=== PATIENT | male | born 1935 | race African-American/Black ===

== ENCOUNTER 2018-05-28 09:21 | Inpatient (IN) ==
[2018-05-28] MEDS ORDERED: SODIUM CHLORIDE 0.9% 1,000 ML IV STA (09:39)
[2018-05-28 09:56] LABS: Basophils % 0.3 % (0.0-0.8); Hematocrit 49.3 VOL% (42.0-52.0); Hemoglobin 16.2 GM/DL (14.0-18.0); Immature Granulocytes % 0.6 %; Immature Granulocytes Absolute 0.04 #; Lymphocytes # 0.6 10*3/uL (1.4-4.0); Lymphocytes % 8.1 % (21.2-54.2); Mean Corpuscular HGB Conc 32.9 GM/DL (32-36); Mean Corpuscular Hemoglobin 29 PG (27-34); Mean Corpuscular Volume 86.9 FL (87-102); Mean Platelet Volume 10.2 FL (9.6-12.0); Monocytes # 0.1 10*3/uL (0.11-0.8); Monocytes % 1.6 % (1.7-12.7); Neutrophils # 6.1 10*3/uL (1.4-7.4); Neutrophils % 89.4 % (38.7-73.9); Platelet Count 100 T/CUMM (130-400); Red Blood Count 5.67 MC/CUMM (3.8-5.5); Red Cell Distribution Width 14.6 % (9.3-17.3); White Blood Count 6.8 T/CUMM (4-12)
[2018-05-28 10:04] LABS: INR 1.1; PT Patient Result 11.4 SECS; Partial Thromboplastin Time 32.9 SECS (0-40)
[2018-05-28 10:14] LABS: Ammonia < 10 UMOL/L (11-32)
[2018-05-28 10:18] LABS: Platelet Estimate Decreased; Polychromasia Few
[2018-05-28 10:19] LABS: Ovalocytes 1+
[2018-05-28 10:21] LABS: Amorphous Crystals,Urine Occasional /HPF (Few); Apearance,Urine CLOUDY (Clear); Bacteria,Urine Occasional /HPF (Few); Bilirubin,Urine Negative (Negative); Blood, Urine Moderate mg/dL (Negative); Glucose,Urine (UA) Negative (Negative); Ketones,Urine 5 mg/dL (Negative); Mucus,Urine Occasional /LPF (Occasional); Nitrite,Urine Negative (Negative); Protein,Urine 100 MG/DL; RBC,Urine 3 /HPF (0-4); Squamous Epithelial Cell,Urine Occasional /HPF (0-10); Urine Color Yellow (Yellow); Urine Specific Gravity 1.018 (1.001-1.035); Urine Urobilinogen < 2.0 EU/DL (0.2-1.0); WBC,Urine 1 /HPF (0-6)
[2018-05-28 10:26] LABS: Alanine Aminotransferase 24 U/L (16-61); Albumin 2.5 G/DL (3.4-5.0); Alkaline Phosphatase 77 U/L (45-117); Aspartate Amino Transferase 79 U/L (0-37); Blood Urea Nitrogen 20 MG/DL (7-18); Calcium 8.8 MG/DL (8.5-10.1); Glucose 121 MG/DL (74-106); Potassium 4.6 MMOL/L (3.5-5.1); Sodium 136 MMOL/L (136-145); Thyroid Stimulating Hormone 0.293 uIU/ml (0.358-3.74); Total Protein 7.3 G/DL (6.4-8.3)
[2018-05-28 10:27] LABS: Lactic Acid 2.1 MMOL/L (0.4-2.0)
[2018-05-28 10:52] LABS: Barbiturates Screen,Urine Negative (Negative); Benzodiazepines Screen,Urine Negative (Negative); Cannabinoid Screen,Urine Negative (Negative); Opiate Screen,Urine Negative (Negative); Phencyclidine Screen,Urine Negative (Negative)
[2018-05-28] MEDS ORDERED: GLUCAGON 1 MG VIAL IM PRN (12:01)
[2018-05-28] MEDS ORDERED: LACTULOSE 20 GM/30 ML UDCUP PO PRN (12:01)
[2018-05-28] MEDS ORDERED: PROMETHAZINE 25 MG TABLET PO PRN (12:01)
[2018-05-28] MEDS ORDERED: DEXTROSE 50% 25 GM/50 ML VIAL IV PRN (12:01)
[2018-05-28] MEDS ORDERED: ONDANSETRON 4 MG/2 ML VIAL IV PRN (12:01)
[2018-05-28] MEDS ORDERED: TUBERCULIN SKIN TEST 0.1 ML SYRINGE INTRADERM ONE (12:18)
[2018-05-28] MEDS ORDERED: SODIUM CHLORIDE 0.9% 2,000 ML IV ONE (14:12)
[2018-05-28] MEDS: SODIUM CHLORIDE 0.9% 1,000 ML IV SCH ×2 (15:06→20:30)
[2018-05-28] MEDS: ACETAMINOPHEN 325 MG TABLET PO PRN (15:06)
[2018-05-28] MEDS: cefTRIAXone 1,000 MG in SYRINGE 1 EACH IV SCH (16:58)
[2018-05-28] MEDS: INSULIN LISPRO 100 UNIT/ML SUBCUT SCH ×2 (18:08→21:41)
[2018-05-28] MEDS: AZITHROMYCIN INJ 500 MG in SODIUM CHLORIDE 0.9% 250 ML IV SCH (21:55)
[2018-05-28] MEDS: DONEPEZIL 10 MG TABLET PO SCH (22:00)
[2018-05-28] MEDS: MEMANTINE 5 MG TABLET PO SCH (22:00)
[2018-05-28] MEDS: APIXABAN 5 MG TABLET PO SCH (22:01)
[2018-05-29] MEDS: SODIUM CHLORIDE 0.9% 1,000 ML IV SCH ×2 (05:46→13:41)
[2018-05-29 08:19] LABS: Basophils % 0.6 % (0.0-0.8); Eosinophils % 0.3 % (0.00-10.9); Hematocrit 42.6 VOL% (42.0-52.0); Immature Granulocytes % 1.4 %; Immature Granulocytes Absolute 0.05 #; Lymphocytes # 0.3 10*3/uL (1.4-4.0); Lymphocytes % 9.8 % (21.2-54.2); Mean Corpuscular HGB Conc 32.9 GM/DL (32-36); Mean Corpuscular Hemoglobin 28 PG (27-34); Mean Corpuscular Volume 85.7 FL (87-102); Mean Platelet Volume 11.1 FL (9.6-12.0); Monocytes # 0.1 10*3/uL (0.11-0.8); NRBC # 0.03 10*3/uL; Neutrophils % 85.9 % (38.7-73.9); Red Blood Count 4.97 MC/CUMM (3.8-5.5); Red Cell Distribution Width 14.7 % (9.3-17.3); White Blood Count 3.5 T/CUMM (4-12)
[2018-05-29 08:22] LABS: Platelet Count 58 T/CUMM (130-400)
[2018-05-29 08:34] LABS: Albumin 1.7 G/DL (3.4-5.0); Bilirubin,Total 0.8 MG/DL (0.2-1.0); Calcium 8.3 MG/DL (8.5-10.1); Osmolality,Calculated 281.4 MOS/KG (273-304); Potassium 3.9 MMOL/L (3.5-5.1); Risk Ratio 3.98; VLDL CHOLESTEROL 22.4 MG/DL
[2018-05-29] MEDS: ASPIRIN EC 81 MG TABLET PO SCH (08:59)
[2018-05-29] MEDS: INSULIN LISPRO 100 UNIT/ML SUBCUT SCH ×4 (08:59→22:03)
[2018-05-29] MEDS: MEMANTINE 5 MG TABLET PO SCH ×2 (08:59→22:02)
[2018-05-29] MEDS: APIXABAN 5 MG TABLET PO SCH ×2 (08:59→22:02)
[2018-05-29] MEDS ORDERED: PANTOPRAZOLE 40 MG TABLET PO SCH (09:00)
[2018-05-29 09:01] LABS: Band Neutrophils 18 % (0-10); Eosinophils 2 % (0-10); Lymphocytes 10 % (20-55); Nucleated Red Blood Cells 1 (0-5); Platelet Estimate Decreased; Segmented Neutrophils 68 % (50-85); Total Cells Counted 100
[2018-05-29 09:02] LABS: Burr Cells Slight; Hypochromasia 1+; Ovalocytes Slight
[2018-05-29] MEDS ORDERED: NITROGLYCERIN SL 0.4 MG TABLET SL ONE (10:14)
[2018-05-29] MEDS ORDERED: ASPIRIN CHEW 81 MG TABLET PO ONE ×2 (10:16→10:20)
[2018-05-29] MEDS ORDERED: NITROGLYCERIN SL 0.4 MG TABLET SL PRN (10:20)
[2018-05-29] MEDS ORDERED: chlorproMAZINE 25 MG TABLET PO PRN (10:38)
[2018-05-29 10:40] LABS: Basophils % 0.3 % (0.0-0.8); Eosinophils % 0.3 % (0.00-10.9); Hematocrit 45.2 VOL% (42.0-52.0); Hemoglobin 14.6 GM/DL (14.0-18.0); Immature Granulocytes % 0.3 %; Immature Granulocytes Absolute 0.01 #; Lymphocytes # 0.6 10*3/uL (1.4-4.0); Lymphocytes % 16.6 % (21.2-54.2); Mean Corpuscular HGB Conc 32.3 GM/DL (32-36); Mean Corpuscular Hemoglobin 28 PG (27-34); Mean Corpuscular Volume 87.8 FL (87-102); Mean Platelet Volume 10.7 FL (9.6-12.0); Monocytes # 0.1 10*3/uL (0.11-0.8); Monocytes % 2.1 % (1.7-12.7); Neutrophils # 2.7 10*3/uL (1.4-7.4); Neutrophils % 80.4 % (38.7-73.9); Platelet Count 56 T/CUMM (130-400); Red Blood Count 5.15 MC/CUMM (3.8-5.5); Red Cell Distribution Width 14.6 % (9.3-17.3); White Blood Count 3.3 T/CUMM (4-12)
[2018-05-29 11:01] LABS: Albumin 1.8 G/DL (3.4-5.0); Bilirubin,Total 0.5 MG/DL (0.2-1.0); Calcium 8.6 MG/DL (8.5-10.1); Osmolality,Calculated 279.5 MOS/KG (273-304); Potassium 4.3 MMOL/L (3.5-5.1)
[2018-05-29] MEDS: ALBUTEROL/IPRATROPIUM 3 ML NEB RESP TX SCH ×4 (11:10→22:31)
[2018-05-29 11:11] LABS: Band Neutrophils 17 % (0-10); Hypochromasia 1+; Lymphocytes 15 % (20-55); Platelet Estimate Decreased; Segmented Neutrophils 67 % (50-85); Total Cells Counted 100
[2018-05-29] MEDS: ACETAMINOPHEN 325 MG TABLET PO PRN ×2 (11:59→15:29)
[2018-05-29] MEDS: cefTRIAXone 1,000 MG in SYRINGE 1 EACH IV SCH (21:45)
[2018-05-29] MEDS: AZITHROMYCIN INJ 500 MG in SODIUM CHLORIDE 0.9% 250 ML IV SCH (21:55)
[2018-05-29] MEDS: DONEPEZIL 10 MG TABLET PO SCH (22:02)
[2018-05-30] MEDS: SODIUM CHLORIDE 0.9% 1,000 ML IV SCH ×4 (00:15→21:16)
[2018-05-30] MEDS: ALBUTEROL/IPRATROPIUM 3 ML NEB RESP TX SCH ×6 (03:49→23:20)
[2018-05-30 06:17] LABS: Basophils % 0.8 % (0.0-0.8); Hematocrit 42.1 VOL% (42.0-52.0); Hemoglobin 13.5 GM/DL (14.0-18.0); Immature Granulocytes % 0.5 %; Immature Granulocytes Absolute 0.02 #; Lymphocytes # 0.5 10*3/uL (1.4-4.0); Lymphocytes % 13.3 % (21.2-54.2); Mean Corpuscular HGB Conc 32.1 GM/DL (32-36); Mean Corpuscular Hemoglobin 28 PG (27-34); Mean Corpuscular Volume 87.2 FL (87-102); Mean Platelet Volume 11.8 FL (9.6-12.0); Monocytes # 0.1 10*3/uL (0.11-0.8); Monocytes % 1.6 % (1.7-12.7); NRBC # 0.05 10*3/uL; Neutrophils # 3.2 10*3/uL (1.4-7.4); Neutrophils % 82.8 % (38.7-73.9); Platelet Count 61 T/CUMM (130-400); Red Blood Count 4.83 MC/CUMM (3.8-5.5); White Blood Count 3.8 T/CUMM (4-12)
[2018-05-30 06:40] LABS: Band Neutrophils 10 % (0-10); Calcium 8.3 MG/DL (8.5-10.1); Eosinophils 2 % (0-10); Lymphocytes 18 % (20-55); Metamyelocytes 1 %; Myelocytes 1 %; Nucleated Red Blood Cells 4 (0-5); Potassium 3.9 MMOL/L (3.5-5.1); Segmented Neutrophils 67 % (50-85); Total Cells Counted 100
[2018-05-30 06:41] LABS: Platelet Estimate Decreased
[2018-05-30] MEDS: ACETAMINOPHEN 650 MG SUPP RECTAL PRN (10:21)
[2018-05-30] MEDS ORDERED: VANCOMYCIN INJ 1,250 MG in SODIUM CHLORIDE 0.9% 250 ML IV ONE (11:00)
[2018-05-30] MEDS: MEMANTINE 5 MG TABLET PO SCH ×2 (11:06→21:17)
[2018-05-30] MEDS: ASPIRIN EC 81 MG TABLET PO SCH (11:06)
[2018-05-30] MEDS: APIXABAN 5 MG TABLET PO SCH ×2 (11:06→21:17)
[2018-05-30] MEDS: INSULIN LISPRO 100 UNIT/ML SUBCUT SCH ×3 (13:24→21:18)
[2018-05-30 13:34] LABS: HIV Antigen/Antibody Result Nonreactive (Nonreactive)
[2018-05-30] MEDS: DOXYCYCLINE HYCLATE INJ 100 MG in SODIUM CHLORIDE 0.9% 100 ML IV SCH (14:48)
[2018-05-30] MEDS ORDERED: ACETAMINOPHEN 650 MG SUPP RECTAL ONE (15:00)
[2018-05-30] MEDS: cefTRIAXone 1,000 MG in SYRINGE 1 EACH IV SCH (20:53)
[2018-05-30] MEDS: DONEPEZIL 10 MG TABLET PO SCH (21:17)
[2018-05-31] MEDS: DOXYCYCLINE HYCLATE INJ 100 MG in SODIUM CHLORIDE 0.9% 100 ML IV SCH ×2 (02:30→18:05)
[2018-05-31] MEDS: ALBUTEROL/IPRATROPIUM 3 ML NEB RESP TX SCH ×5 (03:55→19:48)
[2018-05-31] MEDS: SODIUM CHLORIDE 0.9% 1,000 ML IV SCH ×2 (06:29→17:39)
[2018-05-31] MEDS: MEMANTINE 5 MG TABLET PO SCH ×2 (09:14→20:35)
[2018-05-31] MEDS: APIXABAN 5 MG TABLET PO SCH ×2 (09:14→20:36)
[2018-05-31] MEDS: ASPIRIN EC 81 MG TABLET PO SCH (09:15)
[2018-05-31 09:41] LABS: Basophils % 1.2 % (0.0-0.8); Eosinophils # 0.2 10*3/uL (0.0-0.87); Eosinophils % 4.7 % (0.00-10.9); Hematocrit 40.6 VOL% (42.0-52.0); Hemoglobin 13.5 GM/DL (14.0-18.0); Immature Granulocytes % 0.9 %; Immature Granulocytes Absolute 0.03 #; Lymphocytes # 0.7 10*3/uL (1.4-4.0); Lymphocytes % 19.7 % (21.2-54.2); Mean Corpuscular HGB Conc 33.3 GM/DL (32-36); Mean Corpuscular Hemoglobin 28 PG (27-34); Mean Corpuscular Volume 85.5 FL (87-102); Mean Platelet Volume 10.4 FL (9.6-12.0); Monocytes # 0.2 10*3/uL (0.11-0.8); Monocytes % 6.2 % (1.7-12.7); Neutrophils # 2.3 10*3/uL (1.4-7.4); Neutrophils % 67.3 % (38.7-73.9); Red Blood Count 4.75 MC/CUMM (3.8-5.5); Red Cell Distribution Width 15.4 % (9.3-17.3); White Blood Count 3.4 T/CUMM (4-12)
[2018-05-31 09:47] LABS: Platelet Count 130 T/CUMM (130-400)
[2018-05-31 09:57] LABS: Calcium 7.8 MG/DL (8.5-10.1); Osmolality,Calculated 289.8 MOS/KG (273-304); Potassium 3.7 MMOL/L (3.5-5.1)
[2018-05-31 11:07] LABS: Band Neutrophils 6 % (0-10); Eosinophils 9 % (0-10); Lymphocytes 26 % (20-55); Myelocytes 1 %; Nucleated Red Blood Cells 5 (0-5); Segmented Neutrophils 51 % (50-85); Total Cells Counted 100
[2018-05-31 11:08] LABS: Burr Cells Slight; Hypochromasia 1+; Microcytosis 1+; Platelet Estimate Adequate
[2018-05-31] MEDS: INSULIN LISPRO 100 UNIT/ML SUBCUT SCH ×4 (11:28→21:03)
[2018-05-31] MEDS: ACETAMINOPHEN 325 MG TABLET PO PRN (11:46)
[2018-05-31] MEDS: ACETAMINOPHEN 650 MG SUPP RECTAL PRN (15:01)
[2018-05-31] MEDS: DONEPEZIL 10 MG TABLET PO SCH (20:35)
[2018-05-31] MEDS: cefTRIAXone 1,000 MG in SYRINGE 1 EACH IV SCH (20:36)
[2018-06-01] MEDS: ALBUTEROL/IPRATROPIUM 3 ML NEB RESP TX SCH ×7 (00:39→23:23)
[2018-06-01] MEDS: SODIUM CHLORIDE 0.9% 1,000 ML IV SCH (02:32)
[2018-06-01] MEDS: ACETAMINOPHEN 325 MG TABLET PO PRN (03:03)
[2018-06-01 06:48] LABS: Calcium 7.7 MG/DL (8.5-10.1); Potassium 5.1 MMOL/L (3.5-5.1)
[2018-06-01 06:49] LABS: Basophils # 0.1 10*3/uL (0.0-0.2); Basophils % 3.4 % (0.0-0.8); Eosinophils # 0.2 10*3/uL (0.0-0.87); Eosinophils % 4.8 % (0.00-10.9); Hematocrit 43.8 VOL% (42.0-52.0); Hemoglobin 14.6 GM/DL (14.0-18.0); Immature Granulocytes % 17.6 %; Immature Granulocytes Absolute 0.62 #; Lymphocytes # 1.4 10*3/uL (1.4-4.0); Lymphocytes % 40.9 % (21.2-54.2); Mean Corpuscular HGB Conc 33.3 GM/DL (32-36); Mean Corpuscular Hemoglobin 29 PG (27-34); Mean Corpuscular Volume 85.4 FL (87-102); Mean Platelet Volume 11.1 FL (9.6-12.0); Monocytes # 0.1 10*3/uL (0.11-0.8); NRBC # 0.35 10*3/uL; Neutrophils % 29.3 % (38.7-73.9); Platelet Count 188 T/CUMM (130-400); Red Blood Count 5.13 MC/CUMM (3.8-5.5); White Blood Count 3.5 T/CUMM (4-12)
[2018-06-01 07:02] LABS: Band Neutrophils 2 % (0-10); Eosinophils 1 % (0-10); Lymphocytes 47 % (20-55); Myelocytes 1 %; Nucleated Red Blood Cells 2 (0-5); Ovalocytes Slight; Platelet Estimate Normal; Segmented Neutrophils 44 % (50-85); Total Cells Counted 100
[2018-06-01 07:03] LABS: Burr Cells Slight
[2018-06-01] MEDS: INSULIN LISPRO 100 UNIT/ML SUBCUT SCH ×4 (09:31→21:00)
[2018-06-01] MEDS: APIXABAN 5 MG TABLET PO SCH ×2 (09:32→20:57)
[2018-06-01] MEDS: ASPIRIN EC 81 MG TABLET PO SCH (09:32)
[2018-06-01] MEDS: MEMANTINE 5 MG TABLET PO SCH ×2 (09:32→20:57)
[2018-06-01] MEDS: DOXYCYCLINE HYCLATE INJ 100 MG in SODIUM CHLORIDE 0.9% 100 ML IV SCH ×2 (09:33→21:04)
[2018-06-01] MEDS: ACETAMINOPHEN 650 MG SUPP RECTAL PRN ×2 (11:32→20:57)
[2018-06-01] MEDS ORDERED: FUROSEMIDE 20 MG/2 ML VIAL IV ONE (12:16)
[2018-06-01] MEDS ORDERED: ERGOCALCIFEROL 50,000 UNIT CAPSULE PO SCH (13:30)
[2018-06-01] MEDS: CHOLECALCIFEROL 5,000 UNIT TABLET PO SCH (14:10)
[2018-06-01] MEDS ORDERED: METOPROLOL TARTRATE 25 MG TABLET PO ONE (14:50)
[2018-06-01] MEDS: PIPERACILLIN/TAZOBACTAM 3,375 MG in SODIUM CHLORIDE 0.9% 100 ML IV SCH (16:28)
[2018-06-01] MEDS: METOPROLOL TARTRATE 25 MG TABLET PO SCH ×2 (16:39→20:57)
[2018-06-01 19:47] LABS: Anaplasma phagocytophilum Negative (Negative); Ehrlichia chaffeensis Negative (Negative); Ehrlichia ewingii/canis Negative (Negative)
[2018-06-01] MEDS: DONEPEZIL 10 MG TABLET PO SCH (20:57)
[2018-06-01] MEDS ORDERED: IBUPROFEN 600 MG TABLET PO PRN (22:29)
[2018-06-02] MEDS: PIPERACILLIN/TAZOBACTAM 3,375 MG in SODIUM CHLORIDE 0.9% 100 ML IV SCH ×3 (00:41→16:27)
[2018-06-02] MEDS: ALBUTEROL/IPRATROPIUM 3 ML NEB RESP TX SCH ×6 (03:29→23:57)
[2018-06-02 07:59] LABS: Eosinophils # 0.2 10*3/uL (0.0-0.87)
[2018-06-02 08:02] LABS: Basophils # 0.1 10*3/uL (0.0-0.2); Basophils % 1.8 % (0.0-0.8); Eosinophils % 4.3 % (0.00-10.9); Hematocrit 36.5 VOL% (42.0-52.0); Immature Granulocytes % 25.8 %; Immature Granulocytes Absolute 1.43 #; Lymphocytes # 1.5 10*3/uL (1.4-4.0); Lymphocytes % 27.6 % (21.2-54.2); Mean Corpuscular HGB Conc 33.7 GM/DL (32-36); Mean Corpuscular Hemoglobin 29 PG (27-34); Mean Corpuscular Volume 84.5 FL (87-102); Mean Platelet Volume 11.1 FL (9.6-12.0); Monocytes # 0.5 10*3/uL (0.11-0.8); Monocytes % 8.7 % (1.7-12.7); NRBC # 0.57 10*3/uL; Neutrophils # 1.8 10*3/uL (1.4-7.4); Neutrophils % 31.8 % (38.7-73.9); Red Blood Count 4.32 MC/CUMM (3.8-5.5); Red Cell Distribution Width 16.2 % (9.3-17.3)
[2018-06-02 08:03] LABS: Hemoglobin 12.3 GM/DL (14.0-18.0); Platelet Count 271 T/CUMM (130-400); White Blood Count 5.5 T/CUMM (4-12)
[2018-06-02 08:39] LABS: Osmolality,Calculated 311.3 MOS/KG (273-304); Potassium 4.1 MMOL/L (3.5-5.1)
[2018-06-02 08:40] LABS: Calcium 7.9 MG/DL (8.5-10.1)
[2018-06-02 09:07] LABS: Band Neutrophils 2 % (0-10); Eosinophils 13 % (0-10); Lymphocytes 26 % (20-55); Metamyelocytes 2 %; Myelocytes 3 %; Nucleated Red Blood Cells 23 (0-5); Promyelocytes 3 %; Segmented Neutrophils 40 % (50-85); Total Cells Counted 100
[2018-06-02 09:08] LABS: Hypochromasia 1+
[2018-06-02 09:09] LABS: Microcytosis 1+
[2018-06-02 09:10] LABS: Acanthocytes Few; Platelet Estimate Normal
[2018-06-02] MEDS: INSULIN LISPRO 100 UNIT/ML SUBCUT SCH ×4 (09:37→22:04)
[2018-06-02] MEDS: DOXYCYCLINE HYCLATE INJ 100 MG in SODIUM CHLORIDE 0.9% 100 ML IV SCH ×2 (09:43→21:10)
[2018-06-02] MEDS: ASPIRIN EC 81 MG TABLET PO SCH (09:53)
[2018-06-02] MEDS: MEMANTINE 5 MG TABLET PO SCH ×2 (09:53→22:05)
[2018-06-02] MEDS: METOPROLOL TARTRATE 25 MG TABLET PO SCH ×2 (09:53→22:05)
[2018-06-02] MEDS: CHOLECALCIFEROL 5,000 UNIT TABLET PO SCH (09:53)
[2018-06-02] MEDS: APIXABAN 5 MG TABLET PO SCH ×2 (09:53→22:04)
[2018-06-02] MEDS: DORNASE ALFA 2.5 MG/2.5 ML VIAL RESP TX SCH ×2 (11:20→19:20)
[2018-06-02] MEDS ORDERED: methylPREDNISolone SOD SUC 125 MG/2 ML VIAL IV ONE (12:50)
[2018-06-02] MEDS ORDERED: LEVOFLOXACIN INJ 500 MG in PREMIX 1 EACH IV ONE (12:50)
[2018-06-02] MEDS ORDERED: LIDOCAINE 1% 20 ML VIAL MISC INJ ONE (13:51)
[2018-06-02] MEDS ORDERED: MIDAZOLAM 10 MG/2 ML VIAL IV ONE (13:51)
[2018-06-02] MEDS ORDERED: FAT EMULSION 20% 250 ML IV SCH (14:00)
[2018-06-02] MEDS ORDERED: DEXTROSE 10% 1,000 ML IV PRN (17:00)
[2018-06-02] MEDS ORDERED: MULTIVITAMIN INJ 10 ML, TRACE ELEMENTS (5) 1 ML in AMINO ACIDS/DEXT/LYTES 4.25-5% 2,000 ML IV SCH (17:00)
[2018-06-02] MEDS ORDERED: METOPROLOL TARTRATE 5 MG/5 ML VIAL IV PRN (19:38)
[2018-06-02] MEDS: methylPREDNISolone SOD SUC 40 MG/1 ML VIAL IV SCH (21:10)
[2018-06-02] MEDS: DONEPEZIL 10 MG TABLET PO SCH (22:04)
[2018-06-03] MEDS: PIPERACILLIN/TAZOBACTAM 3,375 MG in SODIUM CHLORIDE 0.9% 100 ML IV SCH ×3 (00:30→15:27)
[2018-06-03] MEDS: ALBUTEROL/IPRATROPIUM 3 ML NEB RESP TX SCH ×4 (03:32→14:30)
[2018-06-03] MEDS: methylPREDNISolone SOD SUC 40 MG/1 ML VIAL IV SCH ×2 (05:35→13:05)
[2018-06-03] MEDS: DORNASE ALFA 2.5 MG/2.5 ML VIAL RESP TX SCH (06:52)
[2018-06-03 07:11] LABS: Basophils # 0.2 10*3/uL (0.0-0.2); Basophils % 1.8 % (0.0-0.8); Eosinophils # 0.1 10*3/uL (0.0-0.87); Eosinophils % 1.2 % (0.00-10.9); Immature Granulocytes % 26.2 %; Immature Granulocytes Absolute 2.38 #; Lymphocytes # 2.1 10*3/uL (1.4-4.0); Mean Corpuscular HGB Conc 37.2 GM/DL (32-36); Mean Corpuscular Hemoglobin 32 PG (27-34); Mean Corpuscular Volume 84.5 FL (87-102); Monocytes # 0.9 10*3/uL (0.11-0.8); Monocytes % 9.7 % (1.7-12.7); NRBC # 1.51 10*3/uL; Neutrophils # 3.5 10*3/uL (1.4-7.4); Neutrophils % 38.1 % (38.7-73.9); Red Blood Count 4.26 MC/CUMM (3.8-5.5); Red Cell Distribution Width 17.1 % (9.3-17.3)
[2018-06-03 07:33] LABS: White Blood Count 9.1 T/CUMM (4-12)
[2018-06-03 07:34] LABS: Hemoglobin 13.4 GM/DL (14.0-18.0); Platelet Count 545 T/CUMM (130-400)
[2018-06-03 07:49] LABS: Albumin 1.1 G/DL (3.4-5.0); Bilirubin,Total 1.3 MG/DL (0.2-1.0); Osmolality,Calculated 319.1 MOS/KG (273-304); Potassium 5.7 MMOL/L (3.5-5.1); Total Protein 6.4 G/DL (6.4-8.3)
[2018-06-03] MEDS ORDERED: DEXTROSE 10% 500 ML IV SCH (08:00)
[2018-06-03 08:10] LABS: Calcium 7.8 MG/DL (8.5-10.1)
[2018-06-03 08:41] LABS: Band Neutrophils 5 % (0-10); Lymphocytes 39 % (20-55); Metamyelocytes 1 %; Myelocytes 2 %; Nucleated Red Blood Cells 22 (0-5); Promyelocytes 2 %; Segmented Neutrophils 42 % (50-85); Total Cells Counted 100
[2018-06-03 08:43] LABS: Microcytosis 1+; Platelet Estimate Increased
[2018-06-03] MEDS: INSULIN LISPRO 100 UNIT/ML SUBCUT SCH ×2 (09:00→12:55)
[2018-06-03 09:05] LABS: Amorphous Crystals,Urine Few /HPF (Few); Apearance,Urine CLOUDY (Clear); Bacteria,Urine Occasional /HPF (Few); Bilirubin,Urine Negative (Negative); Blood, Urine Large mg/dL (Negative); Glucose,Urine (UA) 50 mg/dL (Negative); Ketones,Urine Negative (Negative); Mucus,Urine Occasional /LPF (Occasional); Nitrite,Urine Negative (Negative); Protein,Urine 30 MG/DL; RBC,Urine 312 /HPF (0-4); Squamous Epithelial Cell,Urine Occasional /HPF (0-10); Urine Color Yellow (Yellow); Urine Urobilinogen < 2.0 EU/DL (0.2-1.0); WBC,Urine 10 /HPF (0-6)
[2018-06-03] MEDS ORDERED: METOPROLOL TARTRATE 5 MG/5 ML VIAL IV ONE (09:55)
[2018-06-03] MEDS: ASPIRIN EC 81 MG TABLET PO SCH (09:58)
[2018-06-03] MEDS: APIXABAN 5 MG TABLET PO SCH (09:58)
[2018-06-03] MEDS: METOPROLOL TARTRATE 25 MG TABLET PO SCH (09:59)
[2018-06-03] MEDS: CHOLECALCIFEROL 5,000 UNIT TABLET PO SCH (09:59)
[2018-06-03] MEDS: MEMANTINE 5 MG TABLET PO SCH (09:59)
[2018-06-03] MEDS: DOXYCYCLINE HYCLATE INJ 100 MG in SODIUM CHLORIDE 0.9% 100 ML IV SCH (10:12)
[2018-06-03] MEDS ORDERED: MORPHINE 4 MG/1 ML VIAL IV ONE (12:39)
[2018-06-03] MEDS: ACETAMINOPHEN 650 MG SUPP RECTAL PRN (13:12)
[2018-06-03] MEDS ORDERED: ALBUTEROL 2.5 MG/3 ML NEB RESP TX ONE (13:28)
[2018-06-03] MEDS ORDERED: MORPHINE 4 MG/1 ML VIAL IV PRN (13:38)
[2018-06-03] MEDS ORDERED: PROMETHAZINE INJ 25 MG in SODIUM CHLORIDE 0.9% 50 ML IV PRN (13:39)
[2018-06-03] MEDS ORDERED: SCOPOLAMINE 1.5 MG PATCH TRANSDERM SCH (14:00)
[2018-06-03] MEDS ORDERED: fentaNYL 25 MCG/HR PATCH TRANSDERM SCH (14:00)
[2018-06-03 16:38] VITALS: BP 75/35
[2018-06-05 22:41] LABS: Ehrlichia Chaffeensis (HME)IgG <1:64 titer (<1:64)
[2018-06-08 16:31] LABS: Q Fever IgM Phase I Screen NEGATIVE (NEGATIVE); Q Fever IgM Phase II Screen NEGATIVE (NEGATIVE)
== END 2018-06-03 18:51 | disposition expired | DRG 853 ==
LOC: N.ED 09:21 → N.EDINP 12:17 → N.2W 12:46 → N.2E 15:57
PROVIDERS: ADMIT Hospitalist; ATTEND Hospitalist